=== PATIENT | male | born 1995 | race Caucasian/White ===

== ENCOUNTER 2017-05-06 14:23 | Emergency (ER) | payer SELFPAY ==
[~2017-05-06] VITALS: Ht 182.9 cm; Wt 100.0 kg
[~2017-05-06 14:23] MED LIST: ALLEGRA-D 2424 HOUR PO; AMOXICILLIN500 MG PO; AMOXICILLIN875 MG OR; AMOXICILLIN875 MG PO; BACTRIM DS1 TAB PO; BENZONATATE200 MG PO; KETOCONAZOLE2 % EX; MAXAIR AUTOH200 MCG IN; MUPIROCIN2 % EX; NO HOME MEDS; POLYTRIM OU; PREDNISONE10 MG PO; PREDNISONE20 MG PO; PROAIR HFA IN; TESSALON200 MG PO; ZITHROMAX250 MG PO; ZITHROMAX500 MG PO
[2017-05-06] MEDS ORDERED: FLEXERIL PO (14:47)
[2017-05-06] MEDS ORDERED: MEDDOSEPAK PO (14:47)
[2017-05-06] MEDS ORDERED: ULTRAM50 M1 PO (14:47)
[2017-05-06 15:00] VITALS: BP 139/74
== END 2017-05-06 15:00 | disposition home or self-care (01) | DRG 563 ==
LOC: ED 14:23
DX: S39.012A Strain of muscle, fascia and tendon of lower back, initial encounter (principal); M54.2 Cervicalgia; S16.1XXA Strain of muscle, fascia and tendon at neck level, initial encounter
CPT/HCPCS: Q9967

== ENCOUNTER 2017-05-06 15:05 | Emergency (ER) | payer SELFPAY ==
[~2017-05-06] VITALS: Ht 182.9 cm; Wt 100.0 kg
[~2017-05-06 15:05] MED LIST changes: +FLEXERIL PO; +MEDDOSEPAK PO; +ULTRAM50 M1 PO
[2017-05-06 16:32] LABS: ANION GAP 16 (6-22 (CALC)); BUN 15 mg/dL (9-20); BUN/CREATININE RATIO 14 (12-20 (CALC)); CALCIUM 9.7 mg/dL (8.4-10.2); CARBON DIOXIDE 28 mmol/l (22-30); CHLORIDE 104 mmol/l (95-108); CREATININE 1.1 mg/dL (0.7-1.3); GFR > 60 ML/MIN (>=60 (CALC)); GFR FOR AFR.AMER. > 60 ML/MIN (>=60 (CALC)); GLUCOSE 91 mg/dL (75-110); POTASSIUM 4.7 mmol/l (3.5-5.1); SODIUM 143 mmol/l (137-146)
[2017-05-06 17:35] VITALS: BP 129/74
== END 2017-05-06 17:35 | disposition home or self-care (01) | DRG 552 ==
LOC: ED 15:05
PROVIDERS: Emergency Medicine
DX: S16.1XXA Strain of muscle, fascia and tendon at neck level, initial encounter (principal)
CPT/HCPCS: Q9967

== ENCOUNTER 2017-12-26 10:19 | Emergency (ER) | payer SELFPAY ==
[~2017-12-26] VITALS: Ht 182.9 cm; Wt 106.8 kg
[2017-12-26] MEDS ORDERED: MOTRIN400 MG PO (11:50)
[2017-12-26 12:02] VITALS: BP 134/84
== END 2017-12-26 12:15 | disposition home or self-care (01) | DRG 605 ==
LOC: ED 10:19
PROC: 2W3CX1Z Immobilization of Right Lower Arm using Splint (ICD-10-PCS; principal; 2017-12-26)
DX: S60.051A Contusion of right little finger without damage to nail, initial encounter (principal); W20.8XXA Other cause of strike by thrown, projected or falling object, initial encounter

== ENCOUNTER 2022-02-03 12:28 | Emergency (ER) | payer OTHER ==
[~2022-02-03] VITALS: Ht 182.9 cm; Wt 90.0 kg
[~2022-02-03 12:28] MED LIST changes: +MOTRIN400 MG PO
[2022-02-03 14:54] VITALS: BP 121/72
== END 2022-02-03 15:02 | disposition home or self-care (01) ==
LOC: ED 12:28
DX: J02.9 Acute pharyngitis, unspecified (principal); J45.909 Unspecified asthma, uncomplicated; Z20.822 Contact with and (suspected) exposure to COVID-19
CPT/HCPCS: J0561

== ENCOUNTER 2023-03-18 16:44 | Emergency (ER) | payer OTHER ==
[~2023-03-18] VITALS: Ht 182.9 cm; Wt 80.0 kg
[2023-03-18 18:56] VITALS: BP 132/81
== END 2023-03-18 18:56 | disposition left against medical advice (07) | DRG 951 ==
LOC: ED 16:44 → LWOBS 18:56
DX: Z53.21 Procedure and treatment not carried out due to patient leaving prior to being seen by health care provider (principal)

== ENCOUNTER 2023-07-21 18:08 | Emergency (ER) | payer OTHER ==
[~2023-07-21] VITALS: Ht 182.9 cm; Wt 77.0 kg
[2023-07-21] VITALS (10 sets, daily range): BP systolic 124–134; BP diastolic 81–90
[2023-07-21 20:36] LABS: BASO% 0.4 % (0-3); EOS% 2.7 % (0-8); HEMATOCRIT 40.6 % (39.0-50.0); HEMOGLOBIN 13.7 g/dl (14.0-18.0); LYMPH% 40.9 % (15-41); MEAN CELL VOLUME 87.1 fL CALC (80.0-100.0); MEAN CORPUSCULAR HGB 29.4 pG CALC (26.0-32.0); MEAN CORPUSCULAR HGB CONC 33.7 g/dL CAL (32.0-36.0); MONO% 6.8 % (2-13); NEUT# 2.38 thou/uL (1.82-7.42); NEUT% 49.2 % (42-76); RED BLOOD COUNT 4.66 mill/uL (4.70-6.10); RED CELL DISTRI WIDTH 11.9 % (11.5-15.5)
[2023-07-21] MEDS ORDERED: AMOX/K CLAV875 M1 PO (21:48)
== END 2023-07-21 22:15 | disposition home or self-care (01) ==
LOC: ED 18:08
PROVIDERS: Family Medicine
DX: S91.012A Laceration without foreign body, left ankle, initial encounter (principal); L08.9 Local infection of the skin and subcutaneous tissue, unspecified; X58.XXXA Exposure to other specified factors, initial encounter; J45.909 Unspecified asthma, uncomplicated; Z72.0 Tobacco use

== ENCOUNTER 2024-03-16 16:38 | Emergency (ER) | payer SELFPAY ==
[~2024-03-16] VITALS: Ht 182.9 cm; Wt 72.0 kg
[~2024-03-16 16:38] MED LIST changes: +AMOX/K CLAV875 M1 PO
[2024-03-16 16:47] VITALS: BP 126/68
[2024-03-16] MEDS ORDERED: SODIUM CHLORIDE 0.9% 1,000 ML BAG IV ONE (16:55)
[2024-03-16] MEDS ORDERED: KETOROLAC TROMETHAMINE 15 MG/ML SDV IV ONE (16:55)
[2024-03-16] MEDS ORDERED: ACETAMINOPHEN 500 MG TAB PO ONE (17:00)
[2024-03-16 17:09] LABS: BASO% 0.2 % (0-3); EOS% 0.2 % (0-8); HEMATOCRIT 39.2 % (39.0-50.0); HEMOGLOBIN 13.2 g/dl (14.0-18.0); IMMATURE GRANULOCYTES 0.2 % (0.0-5.0); MEAN CELL VOLUME 88.9 fL CALC (80.0-100.0); MEAN CORPUSCULAR HGB 29.9 pG CALC (26.0-32.0); MEAN CORPUSCULAR HGB CONC 33.7 g/dL CAL (32.0-36.0); MONO% 6.1 % (2-13); NEUT% 81.3 % (42-76); RED BLOOD COUNT 4.41 mill/uL (4.70-6.10); RED CELL DISTRI WIDTH 11.7 % (11.5-15.5)
[2024-03-16 17:14] VITALS: BP 132/77
[2024-03-16 17:29] LABS: ALBUMIN 4.3 g/dL (3.2-5.0); BILIRUBIN, TOTAL 0.5 mg/dL (0.2-1.3); C-REACTIVE PROTEIN 1.1 mg/dL (0-0.9); CREATININE 0.9 mg/dL (0.7-1.3); POTASSIUM 3.3 mmol/l (3.5-5.1); TOTAL PROTEIN 7.3 g/dL (6.3-8.2)
[2024-03-16 17:45] VITALS: BP 130/81
[2024-03-16] MEDS ORDERED: KEFLEX500 MG PO (17:56)
[2024-03-16] MEDS ORDERED: MOTRIN800 MG PO (17:57)
[2024-03-16 18:00] VITALS: BP 128/77
[2024-03-16 18:15] VITALS: BP 127/75
[2024-03-16 18:32] VITALS: BP 127/75
== END 2024-03-16 18:33 | disposition home or self-care (01) | DRG 558 ==
LOC: ED 16:38
PROVIDERS: Nurse Practitioner Family
DX: M70.32 Other bursitis of elbow, left elbow (principal); L03.114 Cellulitis of left upper limb; J45.909 Unspecified asthma, uncomplicated; Z72.0 Tobacco use